=== PATIENT | female | born 1960 | race Caucasian/White ===

== ENCOUNTER 2021-01-18 11:34 | Emergency (ER) | payer MEDICAID, MEDICARE, OTHER ==
[~2021-01-18] VITALS: Ht 160 cm; Wt 95.3 kg
[~2021-01-18 11:34] MED LIST: APLENZIN PO; AUSTEDO PO; BENZ1TAB76 PO; BUSP10TA3 PO; BUSP30TA2 PO; COG1 PO; GABA-531 PO; GABA-533 PO; HYDR50CA5 PO; LAMO200T2 PO; LITH300C2 PO; LURA40TA PO; LYR50 PO; NEBI5TAB3 PO; QUET300T2 PO; QUET300T5 PO
--- NOTE | 2021-01-18 11:38 | NUR ---
Placed in room 3 . Placed on director of cardiac cath lab, blood pressure machine and pulse oximeter. To gown for exam. Side rails up.
[2021-01-18 11:39] VITALS: BP_SYST 115
--- NOTE | 2021-01-18 11:40 | NUR ---
ER at bedside examining patient.
[2021-01-18] MEDS ORDERED: NACL 0.9% 1,000 ML IV ONE ×2 (11:45→14:00)
--- NOTE | 2021-01-18 11:48 | NUR ---
Pt bib ALS for hyperglycemia at home. Pt reports it was over 300 this morning and her conservator called 911. Pt is [id number] speaking full sentences. Breathing is even and unlabored. Pt denies any pain or SOB. Pt denies visual disturbances denies N/V/D. Pt has no complaints. Pt states she feels fine. Pt resting in gurney attached to monitor VSS no distress noted at this time.
--- NOTE | 2021-01-18 11:55 | NUR ---
# 20 gauge angiocath placed to RFA. Use of asceptic technique. Opsite placed over site. Blood return noted. Blood for lab drawn from site. Flushed with 10 cc of normal saline. No evidence of infiltration noted. Patient tolerated well.
--- NOTE | 2021-01-18 11:56 | NUR ---
RT at bedside.
--- NOTE | 2021-01-18 11:58 | NUR ---
X-ray at bedside.
--- NOTE | 2021-01-18 12:02 | NUR ---
Blood collected and sent to lab.
--- NOTE | 2021-01-18 12:02 | NUR ---
Urine collected and sent to lab.
[2021-01-18 12:10] LABS: BASOPHILS # (AUTO) 0.1 K/uL (0.0-0.2); BASOPHILS % (AUTO) 0.4 % (0.0-2.0); EOSINOPHILS # (AUTO) 0.4 K/uL (0.0-0.4); EOSINOPHILS % (AUTO) 2.8 % (0.0-4.0); HEMATOCRIT 40.2 % (36-48); HEMOGLOBIN 13.5 g/dL (12.0-16.0); MEAN CORPUSCULAR HEMOGLOBIN 29 pg (27-31); MEAN CORPUSCULAR HGB CONC 34 % (32-36); MEAN CORPUSCULAR VOLUME 87 fL (79.0-98.0); MONOCYTES # (AUTO) 0.9 K/uL (0.0-1.0); MONOCYTES % (AUTO) 7.5 % (1.7-9.3); NEUTROPHILS # (AUTO) 9.2 K/uL (1.8-7.7); NEUTROPHILS % (AUTO) 73.3 % (40.0-70.0); PLATELET COUNT (AUTO) 335 K/uL (130-430); RED BLOOD CELL COUNT(AUTO) 4.63 MIL/uL (4.2-6.2); RED CELL DISTRIBUTION WIDTH 13.9 % (9.0-15.0); WHITE BLOOD COUNT (AUTO) 12.6 K/uL (4.8-10.8)
[2021-01-18 12:18] LABS: BILIRUBIN,URINE NEGATIVE (NEGATIVE); BLOOD, URINE 1+ (NEGATIVE); COLOR,URINE YELLOW (YELLOW); GLUCOSE,URINE 3+ (NEGATIVE); KETONES,URINE NEGATIVE (NEGATIVE); LEUKOCYTE ESTERASE ,URINE 2+ (NEGATIVE); NITRITE, URINE NEGATIVE (NEGATIVE); PH,URINE 6.5 (5.0-8.0); PROTEIN URINE NEGATIVE (NEGATIVE); UROBILINOGEN,URINE 0.2 (0.2-1.0)
[2021-01-18 12:25] LABS: CLARITY/URINE SLIGHTLY HAZY (CLEAR)
[2021-01-18 12:30] LABS: BARBITURATE, URINE NEGATIVE (NEG <=200); BENZODIAZEPINE, URINE NEGATIVE (NEG <=150); CANNABINOID, URINE NEGATIVE (NEG <=50); COCAINE, URINE NEGATIVE (NEG <=150); METHAMPHETAMINES SCREEN,URINE NEGATIVE (NEG <=500); OPIATE, URINE NEGATIVE (NEG <=100); PHENCYCLIDINE SCREEN,URINE NEGATIVE (NEG <=25); UR TRICYCLIC ANTIDEPRESSANTS POSITIVE (NEG <=300); URINE AMPHETAMINE POSITIVE (NEG <=500); URINE METHADONE NEGATIVE (NEG <=200); URINE OXYCODONE SCREEN NEGATIVE (NEG <=100); URINE PROPOXYPHENE SCREEN NEGATIVE (NEG <=300)
[2021-01-18 12:32] LABS: BACTERIA,URINE FEW /HPF (None Seen); WBC,URINE 20-50 /HPF (0-3)
[2021-01-18 12:33] LABS: ANION GAP 11 (5-15); CALCIUM 11.2 mg/dL (8.4-11.0); CHLORIDE 99 mmol/L (98-107); CREATININE 1.07 mg/dL (0.55-1.30); GLUCOSE 379 mg/dL (70-99); POTASSIUM 3.4 mmol/L (3.5-5.1); SODIUM SERUM 130 mmol/L (136-145); UREA NITROGEN, BLOOD 11 mg/dL (8-21)
[2021-01-18 12:38] LABS: GFR AFRICAN AMERICAN 68 mL/min (>90)
[2021-01-18 12:39] LABS: ALANINE AMINOTRANSFERASE 30 U/L (12-78); ALBUMIN 2.9 g/dL (3.4-4.8); ASPARTATE AMINOTRANSFERASE 14 U/L (10-37); LIPASE 254 U/L (73-393); TOTAL BILIRUBIN 0.2 mg/dL (0.0-1.0)
[2021-01-18 12:41] LABS: ALCOHOL, BLOOD < 3 mg/dL (<10)
[2021-01-18] MEDS ORDERED: INSULIN REGULAR, HUMAN 10 UNITS/0.1 ML INJ IVP ONE (13:45)
[2021-01-18] MEDS ORDERED: POTASSIUM CHLORIDE 20 MEQ TAB.PRT.SR PO ONE (13:45)
[2021-01-18] MEDS ORDERED: MAGNESIUM OXIDE 400 MG TABLET PO ONE (13:45)
[2021-01-18 15:50] VITALS: BP_SYST 139
== END 2021-01-18 15:51 | disposition home or self-care (01) ==
LOC: SED 11:34
DX: E11.65 Type 2 diabetes mellitus with hyperglycemia (principal); F17.210 Nicotine dependence, cigarettes, uncomplicated; Z79.899 Other long term (current) drug therapy
CPT/HCPCS: 36415; 71045; 80053; 80307; 81000; 82962; 83690; 85025; 87086; 93005; 96361; 96374; 99285; G0482; J7030; J1815